=== PATIENT | female | born 1985 | race Caucasian/White ===

== ENCOUNTER 2018-10-23 23:46 | Emergency (ER) | payer MEDICAID ==
[2018-10-23 23:46] VITALS: BMI 23.9
[2018-10-24 00:07] VITALS: RESP 20
[2018-10-24] MEDS ORDERED: Dexamethasone 4 mg/1 ml IM STA (00:35)
[2018-10-24] MEDS ORDERED: Dexamethasone 4 mg/1 ml ONE (00:41)
--- NOTE | 2018-10-24 01:46 | C.PDOC ---
History Of Present Illness 33 year old female presents to the ER with a complaint of left leg pain for the past 2 months that worsened yesterday. Patient reports she does a lot of heavy lifting at work. She saw her PMD who started her on mobic which she has been taking with no relief. Today she took a total of six 200mg aleve and one mobic tablet yesterday with no relief. Denies weakness, numbness, incontinence, abdominal pain, trauma, or injury. Time Seen by Provider: 10/24/18 00:13 Chief Complaint (Nursing): Lower Extremity Problem/Injury History Per: Patient History/Exam Limitations: no limitations Onset/Duration Of Symptoms: Days Current Symptoms Are (Timing): Still Present Recent travel outside of the [place]: No Past Medical History Reviewed: Historical Data, Nursing Documentation, Vital Signs Vital Signs: Last Vital Signs Temp 98.7 F 10/24/18 00:04 Pulse 86 10/24/18 00:04 Resp 20 10/24/18 00:04 BP 130/86 10/24/18 00:04 Pulse Ox 99 10/24/18 00:04 - Medical History PMH: No Chronic Diseases Family History: States: Unknown Family Hx - Social History Hx Alcohol Use: No Hx Substance Use: No - Immunization History Hx Tetanus Toxoid Vaccination: Yes Hx Influenza Vaccination: Yes Hx Pneumococcal Vaccination: Yes Review Of Systems Constitutional: Negative for: Fever, Weakness Eyes: Negative for: Pain Cardiovascular: Negative for: Chest Pain Respiratory: Negative for: Cough Gastrointestinal: Negative for: Vomiting, Abdominal Pain, Diarrhea Genitourinary: Negative for: Dysuria, Frequency Musculoskeletal: Positive for: Leg Pain (Left) Skin: Negative for: Rash Neurological: Negative for: Weakness, Numbness Physical Exam - Physical Exam Appears: Non-toxic Skin: Normal Color, Warm, Dry, No Rash Head: Atraumatic, Normacephalic Eye(s): bilateral: Normal Inspection Oral Mucosa: Moist Throat: No Erythema, No Exudate Neck: Normal ROM Chest: Symmetrical, No Tenderness Cardiovascular: Rhythm Regular, No Friction Rub, No Murmur Respiratory: Normal Breath Sounds, No Rales, No Rhonchi, No Stridor, No Wheezing Gastrointestinal/Abdominal: Bowel Sounds (normal), Soft, No Tenderness Back: Normal Inspection, No CVA Tenderness Extremity: Normal ROM (x4), No Tenderness, No Deformity, No Swelling Pulses: Left Dorsalis Pedis: Normal, Right Dorsalis Pedis: Normal Neurological/Psych: Oriented x3, Normal Speech, Normal Motor, Normal Sensation Gait: Steady ED Course And Treatment O2 Sat by Pulse Oximetry: 99 (Room air) Pulse Ox Interpretation: Normal Medical Decision Making Medical Decision Making: Valium, toradol, and decadron administered. Patient is resting comfortably in the ER in no acute distress, ambulatory with steady gait, vitals are stable, will discharge home with Rx and instructions to follow up with PMD. Disposition - Disposition Referrals: Hugh Cuevas MD [Non-Staff] - Disposition: HOME/ ROUTINE Disposition Time: 01:42 Condition: STABLE Additional Instructions: Follow up with the medical doctor within 1-2days. return if worsened. Prescriptions: diaZEpam [Valium] 5 mg PO TID #21 tab Ibuprofen [Motrin] 600 mg PO TID #21 tab predniSONE [Prednisone] 10 mg PO BID #10 tab Instructions: Sciatica (DC) Forms: Work Excuse - Clinical Impression Clinical Impression: Sciatica - PA / SPORTS INSTRUCTOR / Resident Statement MD/DO has reviewed & agrees with the documentation as recorded. - Scribe Statement The provider has reviewed the documentation as recorded by the Scribsiva Garrett All medical record entries made by the Rolandoibsiva were at my direction and personally dictated by me. I have reviewed the chart and agree that the record accurately reflects my personal performance of the history, physical exam, medical decision making, and the department course for this patient. I have also personally directed, reviewed, and agree with the discharge instructions and disposition.
[2018-10-24 01:59] VITALS: PULSE 74; TEMP 98.3
[2018-10-24 02:08] VITALS: BP 109/67
[2018-10-24 02:56] VITALS: O2SAT 99
== END 2018-10-24 02:05 | disposition home or self-care (01) ==
LOC: C.ER 23:46
DX: M54.30 Sciatica, unspecified side (principal)
CPT/HCPCS: 36415; 96372; 99284; J1100; J1885